=== PATIENT | female | born 1995 | race African-American/Black ===

== ENCOUNTER 2020-01-22 15:02 | Emergency (ER) | payer SELFPAY ==
[~2020-01-22] VITALS: Ht 172.7 cm; Wt 61.2 kg
--- NOTE | 2020-01-22 15:06 | NUR ---
ED Nurse Note: Pt walked into ED w/ c/o abdominal pain 9/10 and vaginal pain 9/10 since 1400 today. At 1400, patient took first dose of pill. Pt is alert and orientedx4, amulatory. She has had spotting and light bleeding.
[2020-01-22 15:08] VITALS: BP 138/71
[2020-01-22] MEDS ORDERED: Ketorolac 30mg Inj IV ONE (15:30)
--- NOTE | 2020-01-22 15:46 | Emergency Room Report ---
History of Present Illness General Chief Complaint: Abdominal Pain Source: Patient Present Illness HPI 24-year-old female presents to the emergency department complaining of 10 out of 10 severity lower uterine cramping in addition to nausea and vomiting acute onset. Patient reports that she took oral pills at [facility] at around 1:00 this afternoon. Patient states that when she got home after 2 hours or so she began having severe lower abdominal cramping. Patient states that she attempted to take Motrin but was unable to keep it down. Patient reports her pain is not improving she states she did begin having some scant vaginal bleeding but has not had passage of large clots or notable POC. Patient reports being G1, P0.She reports she was 6 weeks gestation prior to pharmacological today. She is not sure what blood type she is. She denies fevers or chills. She denies dysuria, hematuria or urinary frequency. No other aggravating or relieving factors at this time. Allergies: Coded Allergies: No Known Allergies (Unverified , 01/22/20) COVID-19 Screening Contact w/high risk pt: No Recent Travel to affected area: No Experienced COVID-19 symptoms?: No COVID-19 Testing performed HEAD BUCKER: No Patient History Past Medical History: see triage record Past Surgical History: none Pertinent Family History: none Now: Yes - Pt. took oral pill today. Reviewed Nursing Documentation: PMH: Agreed; PSxH: Agreed Nursing Documentation-PMH Past Medical History: No Stated History Review of Systems All Other Systems: negative except mentioned in HPI Physical Exam Vital Signs Date Time Temp Pulse Resp B/P (MAP) Pulse Ox O2 Delivery O2 Flow Rate FiO2 01/22/20 15:04 98.8 77 16 134/74 (94) 99 Room Air 01/22/20 15:08 99 Sp02 EP Interpretation: reviewed, normal General Appearance: no apparent distress, alert, GCS 15, non-toxic Head: normocephalic, atraumatic Eyes: bilateral eye normal inspection, bilateral eye PERRL ENT: hearing grossly normal, normal voice Neck: full range of motion Respiratory: lungs clear, normal breath sounds, speaking full sentences Cardiovascular #1: regular rate, rhythm Gastrointestinal: normal bowel sounds, non tender, soft, non-distended, no guarding Genitourinary: normal inspection, no CVA tenderness, deferred - pelvic exam deferred by pt. Musculoskeletal: normal range of motion, gait/station normal, non-tender Neurologic: alert, motor strength/tone normal, oriented x3, sensory intact, responsive, speech normal Psychiatric: judgement/insight normal Skin: normal color Medical Decision Making PA Attestation Dr. Diaz is my supervising Physician whom patient management has been discussed with. Diagnostic Impression: Primary Impression: Lower abdominal pain, unspecified Additional Impression: Medication side effect ER Course 24-year-old female presents to the emergency department complaining of 10 out of 10 severity lower uterine cramping in addition to nausea and vomiting acute onset. Patient reports that she took oral pills at [facility] at around 1:00 this afternoon. Patient states that when she got home after 2 hours or so she began having severe lower abdominal cramping. Patient states that she attempted to take Motrin but was unable to keep it down. Patient reports her pain is not improving she states she did begin having some scant vaginal bleeding but has not had passage of large clots or notable POC. Patient reports being G1, P0.She reports she was 6 weeks gestation prior to pharmacological today. She is not sure what blood type she is. She denies fevers or chills. She denies dysuria, hematuria or urinary frequency. No other aggravating or relieving factors at this time. Ddx considered but are not limited to: Fibroid, ectopic , Fibroid, Spontaneous ,placenta previa, placenta abruptio, missed-miscarriage Vital signs: are WNL, pt. is afebrile Pelvic Exam: Declined by PT. H&PE are most consistent with: Painful pharmacological pt. unable to take Motrin PO- upset her stomach and vomited. ORDERS: -CBC: WNL no significant anemia/blood loss - Blood/RH type and screen- see attached labs - A POSITIVE -Pelvic OB US: Not performed REASONING: Pt. just took pill today, it is too early to determine retained POC. ED INTERVENTIONS: -1 Liter NS Fluids IV -Toradol 15mg IV -Zofran 4mg IV After above interventions this patient successfully completed oral fluid challenge without nausea or vomiting. She reports abdominal cramping has subsided at this time. -I do not identify an emergent condition at this time. With current presentation , pt. is stable for close outpatient follow up and conservative treatment. D/ w pt. to return promptly to ED with worsening or new symptoms.- Pt. verbalizes' understanding and agreement with proposed treatment plan. D/w pt. the need to be closely followed by OBGYN/ [facility] to determine full termination without POC in the next 72 hours. DISCHARGE: At this time pt. is stable for d/c to home. Will provide printed patient care instructions, and any necessary prescriptions. Care plan and follow up instructions have been discussed with the patient prior to discharge. Labs Test 01/22/20 15:30 White Blood Count 10.7 K/UL (4.8-10.8) Red Blood Count 4.16 M/UL (4.20-5.40) Hemoglobin 13.3 G/DL (12.0-16.0) Hematocrit 40.4 % (37.0-47.0) Mean Corpuscular Volume 97 FL (80-99) Mean Corpuscular Hemoglobin 32.0 PG (27.0-31.0) Mean Corpuscular Hemoglobin Concent 33.0 G/DL (32.0-36.0) Red Cell Distribution Width 11.4 % (11.6-14.8) Platelet Count 181 K/UL (150-450) Mean Platelet Volume 12.5 FL (6.5-10.1) Neutrophils (%) (Auto) 75.6 % (45.0-75.0) Lymphocytes (%) (Auto) 16.8 % (20.0-45.0) Monocytes (%) (Auto) 5.5 % (1.0-10.0) Eosinophils (%) (Auto) 0.9 % (0.0-3.0) Basophils (%) (Auto) 1.1 % (0.0-2.0) CT/MRI/US Diagnostic Results CT/MRI/US Diagnostic Results : Imaging Test Ordered: Pelvic OB US: Impression Not performed REASONING: Pt. just took pill today. Last Vital Signs Date Time Temp Pulse Resp B/P (MAP) Pulse Ox O2 Delivery O2 Flow Rate FiO2 01/22/20 15:08 72 18 Room Air 99 01/22/20 15:08 98.8 138/71 99 Disposition: HOME, SELF-CARE Condition: Stable Scripts Tramadol Hcl* (ULTRAM*) 50 Mg Tablet 50 MG ORAL Q6H PRN for For Pain, #10 TAB 0 Refills Prov: Rehana Gonzalez 01/22/20 Ondansetron Odt* (ZOFRAN ODT*) 4 Mg Tab.rapdis 4 MG BC EVERY 6 HOURS PRN for Nausea & Vomiting, #10 TAB 0 Refills Prov: Rehana Gonzalez 01/22/20 [facility]errals: [facility] + [facility] Patient Instructions: Miscarriage, Abdominal Pain, Adult Additional Instructions: Take medications as directed. Follow up with a OBGYN within 3 days, even if your symptoms have resolved. Return sooner to ED if new symptoms occur, or current symptoms become worse. - Please note that this Emergency Department Report was dictated using [employer] distribution clerk technology software, occasionally this can lead to erroneous entry secondary to interpretation by the dictation equipment. Rehana Gonzalez January 22, 2020 15:46
[2020-01-22 16:13] LABS: BASOPHILS % (AUTO) 1.1 % (0.0-2.0); EOSINOPHILS % (AUTO) 0.9 % (0.0-3.0); HEMATOCRIT 40.4 % (37.0-47.0); HEMOGLOBIN 13.3 G/DL (12.0-16.0); LYMPHOCYTES % (AUTO) 16.8 % (20.0-45.0); MEAN CORPUSCULAR VOLUME 97 FL (80-99); MONOCYTES % (AUTO) 5.5 % (1.0-10.0); NEUTROPHILS % (AUTO) 75.6 % (45.0-75.0); PLATELET COUNT 181 K/UL (150-450); RED BLOOD COUNT 4.16 M/UL (4.20-5.40); RED CELL DISTRIBUTION WIDTH 11.4 % (11.6-14.8); WHITE BLOOD COUNT 10.7 K/UL (4.8-10.8)
[2020-01-22 18:07] VITALS: BP 132/70
[2020-01-22] MEDS ORDERED: ONDANSETRON ODT4 MG BC (18:57)
[2020-01-22] MEDS ORDERED: TRAMADOL HCL50 MG ORAL (18:57)
--- NOTE | 2020-01-22 19:28 | NUR ---
ER DISCHARGE NOTE: Patient is cleared to be discharged per ERMD, pt is aox4, on room air, with stable vital signs. pt was given dc and prescription instructions, pt was able to verbalize understanding, pt id band and iv site removed without complications. pt is able to ambulate with steady gait. pt took all belongings. Pt states she is concerned pain 5/10 and low pain tolerance, HOLLIE Gonzalez notified and Carlos states pt will be discharged with same meds.
[2020-01-22 19:29] VITALS: BP 137/77
== END 2020-01-22 19:30 | disposition home or self-care (01) ==
LOC: EMR 15:54
DX: R10.30 Lower abdominal pain, unspecified (principal); R11.2 Nausea with vomiting, unspecified; T38.6X5A Adverse effect of antigonadotrophins, antiestrogens, antiandrogens, not elsewhere classified, initial encounter; Y92.9 Unspecified place or not applicable
CPT/HCPCS: 36415; 85025; 86900; 86901; 96361; 96374; 96375; 99284; J1885; J2405; J7030